=== PATIENT | female | born 1995 | race Caucasian/White ===

== ENCOUNTER 2017-05-23 10:53 | Outpatient (CLI) | payer OTHER ==
--- NOTE | 2017-05-23 11:37 | DIAGNOSTIC IMAGING REPORT ---
PROCEDURE: XR LUMBAR SPINE 2 OR 3 VIEWS INDICATION: Back pain. TECHNIQUE: Three views. COMPARISON: None. FINDINGS: Osseous structures and disc spaces are normal. No evidence of an acute process or fracture. Moderate stool throughout the colon. IMPRESSION: 1. Normal lumbar spine. 2. Moderate stool throughout the colon. Consider obstipation.
--- NOTE | 2017-05-23 11:39 | DIAGNOSTIC IMAGING REPORT ---
PROCEDURE: XR SHOULDER 2 OR MORE VW-RIGHT INDICATION: Right shoulder pain. TECHNIQUE: Three views. COMPARISON: None. FINDINGS: Osseous structures and joint spaces are normal. IMPRESSION: 1. Normal right shoulder.
== END 2017-05-23 23:00 ==
LOC: XR SRH 10:53
DX: M54.9 Dorsalgia, unspecified (principal); K59.00 Constipation, unspecified; M25.511 Pain in right shoulder